=== PATIENT | male | born 1985 | race Caucasian/White ===

== ENCOUNTER 2024-04-24 10:45 | Emergency (ER) | payer BC ==
[~2024-04-24] VITALS: Ht 185.4 cm; Wt 81.6 kg
[2024-04-24] MEDS ORDERED: IBUP-1955 PO (12:51)
[2024-04-24] MEDS: KETOROLAC TROMETHAMINE 15 MG INJ IM ONE (13:00)
[2024-04-24 14:00] VITALS: BP 122/81; TEMP 97.7; O2SAT 97
== END 2024-04-24 14:01 | disposition home or self-care (01) ==
LOC: ER 10:45
DX: S93.492A Sprain of other ligament of left ankle, initial encounter (principal); S93.692A Other sprain of left foot, initial encounter; F17.200 Nicotine dependence, unspecified, uncomplicated; Z79.1 Long term (current) use of non-steroidal anti-inflammatories (NSAID); X58.XXXA Exposure to other specified factors, initial encounter; Y93.89 Activity, other specified; Y92.89 Other specified places as the place of occurrence of the external cause; Y99.8 Other external cause status
CPT/HCPCS: 73610; 73630; A4606; A4663